=== PATIENT | male | born 1960 | race Caucasian/White ===

== ENCOUNTER 2016-12-21 14:16 | Emergency (ER) | payer SELFPAY ==
[2016-12-21] MEDS ORDERED: NS 0.9% 1000 ML* 1,000 ML IV ONE (14:38)
[2016-12-21] MEDS ORDERED: Tetan/Diph/Pertus SYR(Tdap)* 0.5 ML SYR(BOOSTRIX) use SYR IM ONE (14:45)
--- NOTE | 2016-12-21 15:07 | RAD ---
INDICATION: Head injury. COMPARISON: There are no prior studies available for comparison. TECHNIQUE: Contiguous axial sections of the brain were obtained from the skull base to the vertex without contrast. FINDINGS: The ventricles, cisterns and sulci are within normal limits. No significant focal abnormality or mass effect is seen. There is no evidence for hemorrhage. No significant focal osseous abnormality is seen. The visualized portion of the paranasal sinuses and mastoid air cells appear clear. IMPRESSION: NO EVIDENCE FOR ACUTE INTRACRANIAL ABNORMALITY.
--- NOTE | 2016-12-21 15:10 | RAD ---
HISTORY: Facial trauma, laceration across chin COMPARISONS: None TECHNIQUE: Multiple contiguous axial CT scans were obtained of the face without intravenous contrast, with coronal and sagittal multiplanar reformations. FINDINGS: BONES: There is a small linear lucency through the alveolar process of the left mandibular first incisor. Elsewhere, there is no displaced fracture. The zygomatic arches are intact. The pterygoid plates are intact. 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 Degenerative changes are noted of the cervical spine ORBITS: The globes are round. The optic nerves are symmetric. The extraocular musculature is normal. There is no post septal or intraconal inflammatory change. There is no retrobulbar hematoma. PARANASAL SINUSES: The paranasal sinuses are clear. BRAIN AND SOFT TISSUE: There is soft tissue irregularity along the anterior mandible consistent with the history of laceration. There are multiple punctate high attenuation foci suggestive of small metallic foreign bodies along the laceration defect OTHER: None. IMPRESSION: PROBABLE NONDISPLACED FRACTURE THROUGH THE ALVEOLAR PROCESS OF THE LEFT MANDIBULAR FIRST INCISOR. SOFT TISSUE DEFECT, CONSISTENT WITH THE HISTORY OF LACERATION ALONG THE LOWER FACE WITH SEVERAL SMALL METALLIC FOREIGN BODIES ALONG THE LACERATION
[2016-12-21 15:19] LABS: Hematocrit 42 % (42-52); Hemoglobin 13.8 g/dl (14.0-18.0); Mean Corpuscular HGB Conc 33 g/dl (31-36); Mean Corpuscular Hemoglobin 31 pg (27-31); Mean Corpuscular Volume 93 fL (80-94); Mean Platelet Volume 8 um3 (7.4-10.4); Red Blood Count 4.51 10^6/ul (4.0-5.4); Red Cell Distribution Width 13 % (10.5-15); White Blood Count 7.9 10^3/ul (3.5-10.8)
[2016-12-21 15:45] LABS: Albumin 4.1 g/dL (3.2-5.2); BUN/Creatinine Ratio 17.5 (8-20); Calcium 9.5 mg/dL (8.6-10.3); EGFR African American 103.3 (>60); EGFR Non-African American 80.4 (>60); Globulin 3.1 g/dL (2-4); Total Bilirubin 0.4 mg/dL (0.2-1.0); Total Protein 7.2 g/dL (6.4-8.9)
[2016-12-21] MEDS ORDERED: Morphine INJ* 4 MG/ML 1 ML SYRINGE IV ONE (16:48)
--- NOTE | 2016-12-21 18:14 | ED ---
Eze Shelley Auryana, scribed for Chantal Shaw MD on 12/21/16 at 1436 . Laceration/Wound HPI - HPI Summary HPI Summary: 56 year old male presents with chin laceration with active bleeding s/p work accident. 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 He denies any head injury or any blood thinners. He is unsure of the last tetanus shot. PMHx is significant for anxiety/depression - on Wellbutrin. SHx is significant for occasional alcohol use but denies any tobacco or any drug use. His PCP is Dr. Turpin. - History of Current Complaint Stated Complaint: FACIAL INJURY Time Seen by Provider: 12/21/16 14:22 Hx Obtained From: Patient Onset/Duration: Sudden Onset Timing: Constant Onset Severity: Moderate Current Severity: Moderate Pain Intensity: 6 Pain Scale Used: 0-10 Numeric Associated Signs & Symptoms: Discharge - bleeding at site of injury - Allergy/Home Medications Allergies/Adverse Reactions: Allergies Allergy/AdvReac Type Severity Reaction Status Date / Time No Known Allergies Allergy Verified 12/21/16 14:52 PMH/Surg Hx/FS Hx/Imm Hx Psychiatric History: Reports: Hx Anxiety, Hx Depression Infectious Disease History: Denies: Traveled Outside the [place] in Last 30 Days - Family History Known Family History: Negative: Cardiac Disease, Hypertension, Diabetes - Social History Occupation: Employed Full-time Lives: With Family Alcohol Use: Occasionally Hx Substance Use: No Substance Use Type: Reports: None Hx Tobacco Use: No Smoking Status (MU): Never Smoked Tobacco Review of Systems Constitutional: Negative Eyes: Negative ENT: Negative Cardiovascular: Negative Respiratory: Negative Gastrointestinal: Negative Genitourinary: Negative Positive: no symptoms reported Musculoskeletal: Negative Positive: Other - chin laceration Neurological: Negative Psychological: Normal All Other Systems Reviewed And Are Negative: Yes Physical Exam - Summary Physical Exam Summary: General: Well appearing, no pain distress Skin: Warm, Skin Color Reflects Adequate Perfusion, Dry 7 cm laceration to the left side of the jaw to the right. Laceration inside right to left through tooth 23 and through alveolar process extending to the lower lip through and through. Eyes: EOMI, MARCELINO ENT: Pharynx normal, TMs normal Neck: Supple, nontender Respiratory: CTA, breath sounds present, no rhonchi, no wheezes, no rales Cardiovascular: RRR, no murmur, no rub, no gallop Abdomen: Soft, nontender, Non-distended, no guarding, no rebound Bowel: Present Musculoskeletal: ALEENA, No edema Neuro: Sensory/motor intact, A&Ox3, CN intact 2-12 Psych: Affect/mood appropriate Triage Information Reviewed: Yes Vital Signs On Initial Exam: Initial Vitals Temp Pulse Resp BP Pulse Ox 97.1 F 83 18 150/84 97 12/21/16 14:17 12/21/16 14:17 12/21/16 14:17 12/21/16 14:17 12/21/16 14:17 Vital Signs Reviewed: Yes Procedures - Laceration/Wound Repair #1 Location: Other - chin left to right downward - external Description: Linear Anesthesia: Local, Lido - inside, Marcaine - outside Length, Depth and Shape: 7 cm x ____ linear Laceration/Wound Explored: clean Closure: Multilayer - 6-0 nylon non-absorbable superficial sutures x16 ; 4-0 absorbable (polysorb) deep sutures x5 Suture Type: Other - nylon - superficial and polysorb - deep Number of Sutures: 21 - total sutures Layer Closure?: Yes - 2 layers #2 Location: Other - chin - internal Description: Linear Anesthesia: Local, Lido Laceration/Wound Explored: foreign body removed Closure: Single Layer Debridement: moderate Suture Type: Other - polysorb Number of Sutures: 1 - intra-oral Layer Closure?: No Diagnostics - Vital Signs Vital Signs Temp Pulse Resp BP Pulse Ox 12/21/16 14:17 97.1 F 83 18 150/84 97 - Laboratory Lab Results: Lab Results 12/21/16 12/21/16 12/21/16 Range/Units 15:05 15:05 15:05 WBC 7.9 (3.5-10.8) 10^3/ul RBC 4.51 (4.0-5.4) 10^6/ul Hgb 13.8 L (14.0-18.0) g/dl Hct 42 (42-52) % MCV 93 (80-94) fL MCH 31 (27-31) pg MCHC 33 (31-36) g/dl RDW 13 (10.5-15) % Plt Count 227 (150-450) 10^3/ul MPV 8 (7.4-10.4) um3 Neut % (Auto) 69.5 (38-83) % Lymph % (Auto) 19.0 L (25-47) % Pacific % (Auto) 7.1 (1-9) % Eos % (Auto) 2.8 (0-6) % Baso % (Auto) 1.6 (0-2) % Absolute Neuts (auto) 5.5 (1.5-7.7) 10^3/ul Absolute Lymphs (auto) 1.5 (1.0-4.8) 10^3/ul Absolute Monos (auto) 0.6 (0-0.8) 10^3/ul Absolute Eos (auto) 0.2 (0-0.6) 10^3/ul Absolute Basos (auto) 0.1 (0-0.2) 10^3/ul Absolute Nucleated RBC 0.01 10^3/ul Nucleated RBC % 0.2 Sodium 138 (133-145) mmol/L Potassium 4.0 (3.5-5.0) mmol/L Chloride 109 (101-111) mmol/L Carbon Dioxide 20 L (22-32) mmol/L Anion Gap 9 (2-11) mmol/L BUN 17 (6-24) mg/dL Creatinine 0.97 (0.67-1.17) mg/dL Est GFR ( Amer) 103.3 (>60) Est GFR (Non-Af Amer) 80.4 (>60) BUN/Creatinine Ratio 17.5 (8-20) Glucose 102 H (70-100) mg/dL Lactic Acid 0.7 (0.5-2.0) mmol/L Calcium 9.5 (8.6-10.3) mg/dL Total Bilirubin 0.40 (0.2-1.0) mg/dL AST 20 (13-39) U/L ALT 29 (7-52) U/L Alkaline Phosphatase 53 (34-104) U/L Total Protein 7.2 (6.4-8.9) g/dL Albumin 4.1 (3.2-5.2) g/dL Globulin 3.1 (2-4) g/dL Albumin/Globulin Ratio 1.3 (1-3) Result Diagrams: 12/21/16 15:05 12/21/16 15:05 Lab Statement: Any lab studies that have been ordered have been reviewed, and results considered in the medical decision making process. - CT MAXILLOFACIAL CT Interpretation: Positive (See Comments) - IMPRESSION: PROBABLE NONDISPLACED FRACTURE THROUGH THE ALVEOLAR PROCESS OF THE LEFT MANDIBULAR FIRST INCISOR. SOFT TISSUE DEFECT, CONSISTENT WITH THE HISTORY OF LACERATION ALONG THE LOWER FACE WITH SEVERAL SMALL METALLIC FOREIGN BODIES ALONG THE LACERATION CT Interpretation Completed By: Radiologist BRAIN CT Interpretation: No Acute Changes CT Interpretation Completed By: Radiologist Re-Evaluation - Re-Evaluation First Eval Re-Evaluation Time: 15:13 - ASSESSED JAW Laceration Repair Course/Dx - Course Course Of Treatment: case discussed with Dr. Davis multiple times complex laceration with fracture of the alveolar process wound irrigated extensively and pt will be seen by Susan in the future Assessment/Plan: 18:00 Dr. Sam Davis - Clinical Impression Provider Diagnoses: Alveolar border of body of mandible open fracture, Face lacerations - Physician Notifications Discussed Care Of Patient With: Eleazar Davis Time Discussed With Above Provider: 15:02 - given ancept and if fracture is closed - have patient call for an appointment. Instructed by Provider To: Have Pt Call For Appt. Discharge - Discharge Plan Condition: Stable Disposition: HOME Prescriptions: Amoxicillin PO (*) [Amoxicillin 500 MG CAP*] 500 mg PO Q12H #20 cap Chlorhexidine MW 0.12% 473ML* [Peridex Mouth Wash 0.12%*] 473 ml MT DAILY WITH MEAL #473 btl Patient Education Materials: Jaw Fracture in Adults (ED) Referrals: Eleazar Davis MD [Doctor of Dental Medicine] - 1 Day (PLEASE CALL OFFICE FOR AN APPOINTMENT ) The documentation as recorded by the Eze juárez Auryana accurately reflects the service I personally performed and the decisions made by , Chantal Shaw MD.
[2016-12-21 18:42] VITALS: BP 143/87
== END 2016-12-21 18:42 | disposition home or self-care (01) ==
LOC: ED 14:16
DX: S02.672B Fracture of alveolus of left mandible, initial encounter for open fracture (principal); S01.81XA Laceration without foreign body of other part of head, initial encounter; F41.9 Anxiety disorder, unspecified; F32.9 Major depressive disorder, single episode, unspecified; W31.89XA Contact with other specified machinery, initial encounter; Y92.9 Unspecified place or not applicable
CPT/HCPCS: 12014; 36415; 70450; 70486; 80053; 83605; 85025; 90471; 90715; 96360; 96374; 99283; J2270